=== PATIENT | female | born 1975 | race Two or more races ===

== ENCOUNTER 2024-06-22 14:37 | Emergency (ER) | payer OTHER ==
[~2024-06-22] VITALS: Ht 152.4 cm; Wt 81.8 kg
[2024-06-22 14:44] VITALS: BP 132/70; PULSE 75; RESP 18; TEMP 98.2; O2SAT 99
[2024-06-22] MEDS: ACETAMINOPHEN 500 MG TABLET PO ONE (15:33)
[2024-06-22] MEDS: LIDOCAINE 5% TRANSDERMAL PATCH TD ONE (15:34)
[2024-06-22] MEDS: KETOROLAC TROMETHAMINE 30 MG/ML VIAL IM ONE (15:34)
[2024-06-22] MEDS ORDERED: IBUP-1492 PO (15:49)
[2024-06-22] MEDS ORDERED: ACET-3385 PO (15:49)
== END 2024-06-22 16:04 | disposition home or self-care (01) ==
LOC: EMS 14:37
DX: S39.012A Strain of muscle, fascia and tendon of lower back, initial encounter (principal); X50.1XXA Overexertion from prolonged static or awkward postures, initial encounter; Y93.89 Activity, other specified; Y92.89 Other specified places as the place of occurrence of the external cause; Y99.8 Other external cause status
CPT/HCPCS: 99283; 96372; J1885